=== PATIENT | male | born 1965 | race Caucasian/White ===

== ENCOUNTER 2021-11-16 13:06 | Inpatient (IN) ==
[~2021-11-16 13:06] MED LIST: Aspirin 81 MG TAB.CHEW PO ONE; Nitroglycerin 0.4 MG TAB.SUBL SL PRN
[2021-11-16] MEDS ORDERED: *HR* Ticagrelor 90 MG TABLET PO ONE (13:11)
[2021-11-16] MEDS ORDERED: *HR* Heparin 5,000 UNIT/ML VIAL ONE (13:12)
[2021-11-16] MEDS ORDERED: *HR* Ticagrelor 90 MG TABLET ONE (13:12)
[2021-11-16] MEDS ORDERED: Aspirin 81 MG TAB.CHEW ONE (13:12)
[2021-11-16] MEDS ORDERED: 0.9 % Sodium Chloride 1,000 ML ONE (13:12)
[2021-11-16] MEDS ORDERED: *HR* Heparin 5,000 UNIT/ML VIAL IVP PRN ×2 (13:14)
[2021-11-16] MEDS ORDERED: *HR* Heparin 5,000 UNIT/ML VIAL IVP ONE (13:14)
[2021-11-16] MEDS ORDERED: Heparin 25,000UNIT/250ML 1/2NS 25,000 UNIT/250 ML IV.SOLN IVC SCH (13:15)
[2021-11-16] MEDS ORDERED: 0.9 % Sodium Chloride 2,000 ML ONE (13:43)
[2021-11-16] MEDS ORDERED: *HR* Heparin 10,000 UNIT/10 ML VIAL ONE (13:43)
[2021-11-16] MEDS ORDERED: Heparin 1,000 UNITS/500 mL 500 ML ONE ×2 (13:43→14:48)
[2021-11-16] MEDS ORDERED: Nitroglycerin 1,000 MCG/5 ML VIAL IV ONE (13:44)
[2021-11-16] MEDS ORDERED: ISOVUE-370 200 ML INFUS..BTL ONE ×2 (13:44→14:53)
[2021-11-16 13:45] LABS: Basophils # 0.1 K/mcL (0.0-0.2); Basophils % 0.8 %; Eosinophils # 0.2 K/mcL (0.0-0.6); Eosinophils % 2.9 %; Hematocrit 50.5 % (37.5-50.1); Immature Granulocytes % 0.6 % (0-4); Immature Platelets 13.2 % (1.1-6.1); Lymphocytes # 2.3 K/mcL (0.6-4.6); Lymphocytes % 32.6 %; Mean Corpuscular HGB Conc 33.7 g/dL (31.6-35.5); Mean Corpuscular Volume 86.2 fL (83.0-100.0); Monocytes % 13.3 %; Neutrophils # 3.6 K/mcL (1.6-8.9); Platelet Count 257 K/mcL (140-400); Red Blood Count 5.86 M/mcL (4.19-5.50); Red Cell Distribution Width 12.9 % (11.5-14.5); Segmented Neutrophils % 49.8 %; White Blood Count 7.1 K/mcL (4.3-11.1)
[2021-11-16 13:47] LABS: Heparin anti-factor XA UFH < 0.04 IU/mL (0.30-0.70); INR 1.1; Prothrombin Time 11.9 Seconds (9.4-12.1)
[2021-11-16 13:49] LABS: Activated Partial Thrombo Time 32.1 Seconds (26.0-36.0)
[2021-11-16] MEDS ORDERED: *HR* FentaNYL (PF) 100 MCG/2 ML VIAL ONE (13:49)
[2021-11-16] MEDS ORDERED: *HR* Midazolam HCl 2 MG/2 ML VIAL ONE (13:49)
[2021-11-16 14:00] LABS: Alanine Aminotransferase 26 Units/L (7-52); Albumin 4.6 g/dL (3.5-5.7); Albumin/Globulin Ratio 2.1 (1.1-2.2); Alkaline Phosphatase 76 Units/L (34-104); Aspartate Amino Transferase 20 Units/L (13-39); BUN/Creatinine Ratio 20 (6-26); Bilirubin,Direct 0.1 mg/dL (0.0-0.2); Bilirubin,Indirect 0.6 mg/dL (0.0-1.0); Bilirubin,Total 0.7 mg/dL (0.3-1.0); Blood Urea Nitrogen 25 mg/dL (6-20); Calcium 9.5 mg/dL (8.6-10.3); Carbon Dioxide 19 mEq/L (23-29); Chloride 105 mEq/L (98-107); Globulin 2.2 g/dL (2.4-3.5); Glucose 129 mg/dL (70-105); Lipase 36 Units/L (11-82); Osmolality,Calculated 294 (280-300); Potassium 3.6 mEq/L (3.5-5.1); Sodium 139 mEq/L (136-145); Total Protein 6.8 g/dL (6.4-8.9); Troponin I < 0.03 ng/mL (< 0.04); eGFR For African Americans > 60 (> 60); eGFR For Non-African Americans 58 (> 60)
[2021-11-16] MEDS ORDERED: Perflutren Lipid Microsphere 1.3 ML in 0.9 % Sodium Chloride 8.7 ML IVP PRN (15:52)
[2021-11-17 06:07] LABS: Basophils % 0.3 %; Eosinophils # 0.1 K/mcL (0.0-0.6); Eosinophils % 1.6 %; Immature Granulocytes % 0.3 % (0-4); Lymphocytes % 11.8 %; Mean Corpuscular HGB Conc 33.3 g/dL (31.6-35.5); Mean Corpuscular Hemoglobin 29.4 pg (28.0-33.3); Mean Corpuscular Volume 88.1 fL (83.0-100.0); Mean Platelet Volume 12.7 fL (9.4-12.4); Monocytes # 0.9 K/mcL (0.0-1.3); Monocytes % 10.6 %; Neutrophils # 6.5 K/mcL (1.6-8.9); Platelet Count 185 K/mcL (140-400); Red Blood Count 5.11 M/mcL (4.19-5.50); Red Cell Distribution Width 13.2 % (11.5-14.5); Segmented Neutrophils % 75.4 %; White Blood Count 8.7 K/mcL (4.3-11.1)
[2021-11-17 06:50] LABS: BUN/Creatinine Ratio 18 (6-26); Blood Urea Nitrogen 17 mg/dL (6-20); Calcium 8.5 mg/dL (8.6-10.3); Carbon Dioxide 24 mEq/L (23-29); Chloride 108 mEq/L (98-107); Glucose 99 mg/dL (70-105); Osmolality,Calculated 290 (280-300); Sodium 139 mEq/L (136-145); Troponin I 3.62 ng/mL (< 0.04); eGFR For African Americans > 60 (> 60); eGFR For Non-African Americans > 60 (> 60)
[2021-11-17] MEDS: Aspirin 81 MG TAB.CHEW PO SCH (08:26)
[2021-11-17] MEDS ORDERED: Metoprolol XL (24 HR) Succ 25 MG TAB.ER.24H PO SCH (09:00)
[2021-11-18 06:57] LABS: Basophils % 0.6 %; Eosinophils # 0.2 K/mcL (0.0-0.6); Eosinophils % 2.6 %; Hematocrit 47.2 % (37.5-50.1); Hemoglobin 15.4 g/dL (12.9-16.9); Immature Granulocytes % 0.5 % (0-4); Lymphocytes # 1.1 K/mcL (0.6-4.6); Lymphocytes % 16.4 %; Mean Corpuscular HGB Conc 32.6 g/dL (31.6-35.5); Mean Corpuscular Hemoglobin 28.7 pg (28.0-33.3); Mean Corpuscular Volume 87.9 fL (83.0-100.0); Monocytes # 0.8 K/mcL (0.0-1.3); Monocytes % 12.4 %; Neutrophils # 4.4 K/mcL (1.6-8.9); Platelet Count 178 K/mcL (140-400); Red Blood Count 5.37 M/mcL (4.19-5.50); Red Cell Distribution Width 13.3 % (11.5-14.5); Segmented Neutrophils % 67.5 %; White Blood Count 6.5 K/mcL (4.3-11.1)
[2021-11-18 07:07] LABS: BUN/Creatinine Ratio 15 (6-26); Blood Urea Nitrogen 14 mg/dL (6-20); Calcium 8.7 mg/dL (8.6-10.3); Carbon Dioxide 25 mEq/L (23-29); Chloride 107 mEq/L (98-107); Glucose 110 mg/dL (70-105); Osmolality,Calculated 289 (280-300); Potassium 4.1 mEq/L (3.5-5.1); Sodium 139 mEq/L (136-145); eGFR For African Americans > 60 (> 60); eGFR For Non-African Americans > 60 (> 60)
[2021-11-18] MEDS: Aspirin 81 MG TAB.CHEW PO SCH (07:34)
[2021-11-18 07:45] VITALS: O2SAT 97
[2021-11-18 09:44] VITALS: PULSE 80
[2021-11-18 11:26] VITALS: TEMP 97.6
[2021-11-18 12:10] VITALS: BP 105/74
== END 2021-11-18 15:10 | disposition home or self-care (01) | DRG 246 ==
LOC: EMEROOARM 13:06 → ICNU 13:54
PROVIDERS: ADMIT Internal Medicine Cardiovascular Disease; ATTEND Internal Medicine Cardiovascular Disease